=== PATIENT | female | born 1990 | race Caucasian/White ===

== ENCOUNTER 2021-07-22 10:56 | Outpatient (REF) | payer OTHER, SELFPAY ==
--- NOTE | ~2021-07-22 | XR_ITS ---
EXAMINATION: LEFT ANKLE AND LEFT FOOT X-RAY CLINICAL INFORMATION: Sprain COMPARISON: None TECHNIQUE: 3 views of the left ankle and 3 views of the left foot FINDINGS: Left foot: Bone alignment is normal. No fracture or dislocation is seen. The joint spaces are normal. Soft tissues are normal. Left ankle: Bone alignment is normal. No fracture or dislocation is seen. The ankle mortise is normal. Soft tissues are normal. XR/XR ankle LT min 3V IMPRESSION: Unremarkable exam.
--- NOTE | ~2021-07-22 | XR_ITS ---
EXAMINATION: LEFT ANKLE AND LEFT FOOT X-RAY CLINICAL INFORMATION: Sprain COMPARISON: None TECHNIQUE: 3 views of the left ankle and 3 views of the left foot FINDINGS: Left foot: Bone alignment is normal. No fracture or dislocation is seen. The joint spaces are normal. Soft tissues are normal. Left ankle: Bone alignment is normal. No fracture or dislocation is seen. The ankle mortise is normal. Soft tissues are normal. XR/XR foot LT min 3V IMPRESSION: Unremarkable exam.
== END 2021-07-22 10:57 | disposition home or self-care (01) ==
LOC: HO.HMGCX 10:56
PROVIDERS: PCP Internal Medicine; Visit Provider Physician Assistant Medical
DX: Z13.89 Encounter for screening for other disorder (principal)
CPT/HCPCS: 73610; 73630

== ENCOUNTER 2022-01-26 06:00 | Day surgery (SDC) | payer OTHER, SELFPAY ==
--- NOTE | 2022-01-25 14:09 | P.CONAN_ITS ---
Documented by User: Flor Owusu NP 01/25/22 14:09 HPI - Anesthesia Eval Consult details Narrative: 31yo F for Endoscopic Bronchial Ultrasound,with poss CME COUNTS INCLUDE 234 BEDS AT THE [facility] Past Medical History Medical History Asthma GERD (gastroesophageal reflux disease) Hiatal hernia Mediastinal mass Obesity Psoriasis Surgical History Surgical History (Updated 01/26/22 @ 06:11 by Katie Soto, RN) H/O wisdom tooth extraction History of esophagogastroduodenoscopy (EGD) Previous section Social History Social History Patient Tobacco Use Status: Never used Tobacco Use of substances other than those prescribed or required for medical reasons: No Are you DNR?: No Advance Directives: No Advance Directives Information Provided: Yes Meds Allergies Allergy/AdvReac Type Severity Reaction Status Date / Time No Known Allergies Allergy Verified 07/22/21 10:32 [No Known Allergies*] Home Medications Medication Instructions Recorded Confirmed Last Taken Type etonogestrel 68 mg subdermal SUBDERMAL 07/22/21 Unknown History implant (Nexplanon) albuterol sulfate 90 mcg/actuation INHALATION 01/25/22 Unknown History aerosol inhaler (ProAir HFA) famotidine 10 mg tablet (Heartburn tab PO 01/25/22 01/25/22 Unknown History Relief (famotidine)) omeprazole 20 mg capsule,delayed 1 cap PO DAILY 01/25/22 01/25/22 Unknown History release Exam Exam Date and Time: January 25, 2022 1409 Assessment and Plan Assessment Anesthesia Assessment: Chart Reviewed Documented by User: Sherrill Pinzon MD 01/26/22 07:04 COUNTS INCLUDE 234 BEDS AT THE [facility] Past Medical History Medical History Asthma GERD (gastroesophageal reflux disease) Hiatal hernia Mediastinal mass Obesity Psoriasis Family History Family history of problems with anesthesia: No Surgical History Surgical History (Updated 01/26/22 @ 06:11 by Katie Soto, RN) H/O wisdom tooth extraction History of esophagogastroduodenoscopy (EGD) Previous section History of Problems with Anesthesia: No Social History Social History Patient Tobacco Use Status: Never used Tobacco Use of substances other than those prescribed or required for medical reasons: No Are you DNR?: No Advance Directives: No Advance Directives Information Provided: Yes Meds Allergies Allergy/AdvReac Type Severity Reaction Status Date / Time No Known Allergies Allergy Verified 07/22/21 10:32 [No Known Allergies*] Home Medications Medication Instructions Recorded Confirmed Last Taken Type etonogestrel 68 mg subdermal SUBDERMAL 07/22/21 Unknown History implant (Nexplanon) albuterol sulfate 90 mcg/actuation INHALATION 01/25/22 Unknown History aerosol inhaler (ProAir HFA) famotidine 10 mg tablet (Heartburn tab PO 01/25/22 01/25/22 Unknown History Relief (famotidine)) omeprazole 20 mg capsule,delayed 1 cap PO DAILY 01/25/22 01/25/22 Unknown History release Exam Airway Mallampati Class: II TM Dist: >3cm Neck ROM: Full Heart: rrr Lungs: cta Assessment and Plan Assessment Anesthesia Assessment: Anesthesia Plan Discussed and Chart Reviewed Final Anesthetic Review Family History of Problems with Anesthesia: No History of Problems with Anesthesia: No NPO: Yes ASA Class: III Final Preanesthetic Review: No Changes in Pt Med Stat, Meds/Allgs Chart Reviewed and Consent Obtained/Reviewed Patient Risk: Intermediate Procedure Risk: Intermediate Anesthetic Plan Anesthetic Plan: MAC: Disposition: Standard PACU
[2022-01-26 06:12] VITALS: BMI 52.8
[2022-01-26 06:14] VITALS: BP 136/86; PULSE 88; RESP 16; TEMP 37.1; O2SAT 97
[2022-01-26 06:24] LABS: UPreg QC Valid YES; Urine Pregnancy NEGATIVE (NEGATIVE)
[2022-01-26] MEDS: Lactated Ringers 1,000 ML 100 ML IVCONT (06:31)
--- NOTE | 2022-01-26 07:20 | MHC.SHP ---
Pre-Procedural Eval Section A Date of Service: 01/26/22 The patient is an INPATIENT: No The History & Physical has been completed within 30 days and I have reviewed it.: Yes Section B Chief Complaint: Localized enlarged lymph nodes Allergies: Allergies Allergy/AdvReac Type Severity Reaction Status Date / Time No Known Allergies Allergy Verified 07/22/21 10:32 [No Known Allergies*] Plan I have reviewed the history and physical and performed a pertinent physical examination on my patient. No changes have occurred unless specified.
[2022-01-26 08:34] VITALS: BP 128/80; PULSE 105; RESP 20; TEMP 36.8; O2SAT 95
[2022-01-26 08:39] VITALS: BP 128/75; PULSE 93; RESP 20; O2SAT 94
[2022-01-26 08:44] VITALS: BP 126/73; PULSE 98; RESP 20; O2SAT 94
[2022-01-26] MEDS: Throat Lozenge, Medicated LOZENGE 1 LOZENGE MUCOUS MEM (08:48)
[2022-01-26 08:49] VITALS: BP 116/69; PULSE 85; RESP 20; O2SAT 94
--- NOTE | 2022-01-26 08:51 | W.PM.OPN ---
Operative Note Operative Note Date of Service: 01/26/22 Narrative: Preoperative diagnosis: Mediastinal lymphadenopathy Postoperative diagnosis: Same Operation: Endobronchial ultrasound with biopsy of multiple lymph node stations Surgeon: Karoline Simmons MD Anesthesia: General Specimens: Mediastinal lymph nodes EBL: Operation in detail: The patient was brought to the operating room, placed supine on the operative table, anesthesia monitor devices were placed, and the patient was intubated with an 8 and half endotracheal tube. A time-out was performed confirming the correct patient, site, and procedure. The Olympus endobronchial ultrasound scope was then inserted through the endotracheal tube and the airways were visualized down to the subsegmental level bilaterally. Findings are no endobronchial lesions and no secretions The ultrasound was then applied to all 3 stations visualizing the lymph nodes with the findings bulky lymphadenopathy in the right paratracheal, left paratracheal, and subcarinal space mediastinal spaces. This correlates with her CT imaging from [facility]. First, we visualized with ultrasound the subcarinal lymph nodes in using a 19 gauge Olympus biopsy needle 3 passes were taking and sent for on-site evaluation. This process was then repeated with right paratracheal and left paratracheal lymph nodes. Findings are at least 1 good sample no carcinoma identified. The remaining passes were placed in a combination of cyto light and are RPMI for flow. Hemostasis was then assured in the bronchoscope was removed. The patient tolerated the procedure well, was extubated in the operating room, and brought to the PACU in stable condition.
[2022-01-26 09:05] VITALS: BP 130/80; PULSE 84; RESP 20; TEMP 36.9; O2SAT 96
== END 2022-01-26 09:30 | disposition home or self-care (01) ==
PROVIDERS: Nurse Practitioner; PCP Internal Medicine; Visit Provider Surgery
PROC: (CPT 31653; principal; 2022-01-26 07:30)
DX: R59.0 Localized enlarged lymph nodes (principal); R07.9 Chest pain, unspecified; R06.02 Shortness of breath; K44.9 Diaphragmatic hernia without obstruction or gangrene; K21.9 Gastro-esophageal reflux disease without esophagitis; J45.909 Unspecified asthma, uncomplicated; L40.9 Psoriasis, unspecified; E66.01 Morbid (severe) obesity due to excess calories; Z68.43 Body mass index [BMI] 50.0-59.9, adult; Z79.899 Other long term (current) drug therapy; Z86.16 Personal history of COVID-19
CPT/HCPCS: 31653; 36415; 81025; 88172; 88173; 88177; 88184; 88185; 88305; 88312; J0171; J0690; J1100; J2250; J2405; J3010

== ENCOUNTER 2025-05-10 08:17 | Outpatient (AMB) | payer OTHER, SELFPAY ==
--- OUTSIDE RECORDS SUMMARY | 2025-05-10 08:22 | XMS_ITS | Data Portability ---
Author Organization [facility], [address] Address [address] [place] [address] Care Team Providers Care Forming Fixer Name Role Phone [facility] Prim [place] Care Provider Assessment No assessment recorded. Plan of Treatment Reminders Order Date Submit Date Provider Last Modified By Organization Details Last Modified Time Details Appointments None recorded. Lab rapid SARS CoV 2 Ag, QL IA, respiratory specimen 2022 023 [email or web address] 5 [address] [address], [address] [place], [address], 3 16:26:54 rapid flu (A+B) 2022 023 [email or web address] 5 [address] [address], [address] [place], [address], 3 16:26:54 rapid strep group A, throat 2022 023 [email or web address] 5 [id number] [address] [place], [address], 3 16:26:54 Referral None recorded. Procedures None recorded. Surgeries None recorded. Imaging None recorded. Medication Orders None recorded. Patient TargetsNo targets recorded. Patient Instructions Encounter Date Encounter Id Patient Instructions Last Modified By Organization Details Last Modified Time 11/05/2022 [id number] coronavirus (covid-19): care instructions [email or web address] Not available 11/05/2022 16:26:54 Fever: Care Instructions [email or web address] Not available 11/05/2022 16:26:54 cough: care instructions [email or web address] Not available 11/05/2022 16:26:54 Rest. Drink plenty of fluids. Tylenol may be taken per package instructions for pain and fever. Nutritional supplements that may benefit you include: Vitamin D3 5,000 IU daily Vitamin C 1,000mg 3 times daily Zinc 50mg daily Quercetin 500mg 2 times daily Cucurmin Melatonin Elderberry Gargling with Listerine and using a saline nasal spray several times daily can decrease viral replication in your nose and mouth. See printed instructions. Seek Emergency Medical evaluation for any worsening symptoms. Follow-up with your doctor this week. Quarantine at home for 5 days from onset of symptoms. If you feel well on day 6 you may leave your home but wear a mask for the next 5 days. If you are still sick on day 6 stay home for a few more days. [email or web address] Not available 11/05/2022 16:26:48 Reason for Referral None Reported. Results Created Date Observation Date Name Description Value Unit Range Abnormal Flag Note LastModifiedBy Organization Detail LastModifiedTime 11/05/1911/05/2022 rapid flu (A+B) Unknown Analyte Normal = Negati ve Not Available [address] [place], [address], 11/05/2022 15:38:29 11/05/19 23 11/05/2022 rapid flu (A+B) Unknown Analyte negati ve Not Available [address] [place], [address], 11/05/2022 15:38:29 11/05/19 23 11/05/2022 rapid flu (A+B) Unknown Analyte Normal = Negati ve Not Available [address] [place], [address], 11/05/2022 15:38:29 11/05/19 23 11/05/2022 rapid flu (A+B) Unknown Analyte negati ve Not Available [address] [place], [address], 11/05/2022 15:38:29 11/05/19 23 11/05/2022 rapid strep group A, throa t Unknown Analyte Normal = Negati ve Not Available [address] [place], [address], 11/05/2022 15:38:35 11/05/19 23 11/05/2022 rapid strep group A, throa t Unknown Analyte negati ve Not Available [address] [place], [address], 11/05/2022 15:38:35 11/05/19 23 11/05/2022 rapid SARS CoV 2 Ag, QL IA, respi rator y speci men Unknown Analyte Normal =Negat fermin Not Available [address] [place], [address], 11/05/2022 15:37:55 11/05/1911/05/2022 rapid SARS CoV 2 Ag, QL IA, respi rator y speci men Unknown Analyte positi ve Not Available [address] [place], [address], 11/05/2022 15:37:55 Result Notes None recorded. Problems Name Problem SNOMED Code Status Onset Date Resolution Date Notes Provider Name and Address Organization Details Recorded Time Asthma 904811600 Active 2022 MEL MACHJOSSY null, [place] - [facility] 3 15:40:52 Sarcoidos is 02047851 Active 2022 MELWILLIE TUCKER null, PA - [facility] 3 15:42:45 SARS-CoV- 2 Completed 201911/03/2020 dx second time in november 2021 MEL TUCKER null, PA - [facility] 3 15:43:30 Problem Notes None recorded. Medical Equipment None Reported. Allergies No known drug allergies Medications Name Sig Start Date Stop Date Status Note LastModified by Organization Details LastModified Time omeprazole 20 mg capsule,del ayed release TAKE ONE CAPSULE BY MOUTH ONCE DAILY 30 MINUTES BEFORE FIRST MEAL 11/05 completed Not Available Not Available Not Available diclofenac sodium 75 mg tablet,ko yed release TAKE ONE TABLET BY MOUTH TWICE A DAY 11/05 completed Not Available Not Available Not Available amoxicillin 875 mg-potassiu m clavulanate 125 mg tablet TAKE ONE TABLET BY MOUTH TWICE A DAY FOR 7 DAYS 11/05 completed Not Available Not Available Not Available Heartburn Relief (famotidine ) 10 mg tablet TAKE ONE TABLET BY MOUTH TWICE A DAY 11/05 completed Not Available Not Available Not Available nitrofurant oin monohydrate /macrocryst als 100 mg capsule TAKE ONE CAPSULE BY MOUTH TWICE A DAY FOR 7 DAYS 11/05 completed Not Available Not Available Not Available albuterol sulfate active Not Available Not Available Not Available ProAir HFA 90 mcg/actuati on aerosol inhaler INHALE TWO PUFFS BY MOUTH EVERY 4 HOURS NEEDED FOR SHORTNESS OF BREATH , COUGH , OR WHEEZING 11/05 completed Not Available Not Available Not Available Vitals Date Recorded Body height Body mass index (BMI) Body weight Oxygen saturation Oxygen saturation in Arterial blood by Pulse oximetry Heart rate Respiratory rate Body temperature Systolic And Diastolic Provider Name and Address Organization Details Last Updated DateTime 3 157.48 cm 51.9 kg/m2 036129. 23 g 98 % 98 % 93 /min 18 /min 99.3 [degF] 132/80 mm[Hg] MEL TUCKER [facility] 3 15:39:25 Social History Question Answer Notes LastModified by [employer] Details LastModified Time Tobacco Smoking Status Never Smoker [facility] 11/05/2022 15:42:15 Have You Recently Traveled Abroad? No Information not available 11/05/2022 Sex: Unknown Functional Status Question Answer Note LastModified by [employer] Details LastModified Time Do you use any illicit or recreational drugs? No Information not available 11/05/2022 Do you or have you ever used any other forms of tobacco or nicotine? No Information not available 11/05/2022 What is your level of alcohol consumption? None Information not available 11/05/2022 Mental Status None recorded. Family History Relationship Description Onset Age of this Age Resolved Age Notes LastModified by Organization Details LastModified Time Unspecified Relation Heart disease [email or web address] Not available 2022 15:41:46 Unspecified Relation Atrial fibrillation [email or web address] Not available 12/2022 15:41:51 Unspecified Relation Malignant tumor of breast [email or web address] Not available 2022 15:42:03 Unspecified Relation Malignant neoplasm of vertebral column region [email or web address] Not available 2022 15:42:10 Medical History No medical history recorded. Gynecological HistoryNo gynecological history recorded. Obstetrics History GPAL:G 0 P 0 0 0 0 Immunizations Vaccine Type Date Status Note Provider Nam e and Address Organization Details Recorded Time Influenza, split virus, trivalent, preservative 2 completed MEL MACHNACZ null, PA - [facility] 11/05/2022 15:39:56 OPV 0 completed MEL MACHNACZ null, PA - [facility] 11/05/2022 15:39:56 MMR 9 completed MEL MACHNACZ null, PA - [facility] 11/05/2022 15:39:56 HPV, quadrivalent 8 completed MEL MACHNACZ null, PA - [facility] 11/05/2022 15:39:56 Hep B, adolescent or pediatric 9 completed MEL MACHNACZ null, PA - [facility] 11/05/2022 15:39:56 MMR 0 completed MEL MACHNACZ null, PA - [facility] 11/05/2022 15:39:56 DTaP-Hib 0 completed MEL MACHNACZ null, PA - [facility] 11/05/2022 15:39:56 OPV 8 completed MEL MACHNACZ null, PA - [facility] 11/05/2022 15:39:56 OPV 3 completed MEL MACHNACZ null, PA - [facility] 11/05/2022 15:39:56 DTaP-Hib 3 completed MEL MACHNACZ null, PA - [facility] 11/05/2022 15:39:56 Hep B, adolescent or pediatric 0 completed MEL MACHNACZ null, PA - [facility] 11/05/2022 15:39:56 DTP 9 completed MEL MACHNACZ null, PA - [facility] 11/05/2022 15:39:56 Influenza, split virus, trivalent, PF 3 completed MEL MACHNACZ null, PA - [facility] 11/05/2022 15:39:56 Hep B, adult 0 completed MEL MACHNACZ null, PA - [facility] 11/05/2022 15:39:56 OPV 9 completed MEL MACHNACZ null, PA - [facility] 11/05/2022 15:39:56 COVID-19, mRNA, LNP-S, PF, 30 mcg/0.3 mL dose 1 completed MEL MACHNACZ null, PA - [facility] 11/05/2022 15:39:56 varicella 9 completed MEL MACHNACZ null, PA - [facility] 11/05/2022 15:39:56 varicella 9 completed MEL MACHNACZ null, PA - [facility] 11/05/2022 15:39:56 Hep B, adult 1 completed MEL MACHNACZ null, PA - [facility] 11/05/2022 15:39:56 Hep B, adolescent or pediatric 9 completed MEL MACHNACZ null, PA - [facility] 11/05/2022 15:39:56 Influenza, split virus, quadrivalent, PF 0 completed MEL MACHNACZ null, PA - [facility] 11/05/2022 15:39:56 MMR 9 completed MEL MACHNACZ null, PA - [facility] 11/05/2022 15:39:56 Hib (HbOC) 0 completed MEL MACHNACZ null, PA - [facility] 11/05/2022 15:39:56 Tdap 4 completed MEL MACHNACZ null, PA - [facility] 11/05/2022 15:39:56 Tdap 4 completed MEL MACHNACZ null, PA - [facility] 11/05/2022 15:39:56 HPV, quadrivalent 7 completed MEL MACHNACZ null, PA - [facility] 11/05/2022 15:39:56 pneumococcal polysaccharide PPV23 6 completed MEL MACHNACZ null, PA - [facility] 11/05/2022 15:39:56 DTP 8 completed MEL MACHNACZ null, PA - [facility] 11/05/2022 15:39:56 DTP 9 completed MEL MACHNACZ null, PA - [facility] 11/05/2022 15:39:56 COVID-19, mRNA, LNP-S, PF, 30 mcg/0.3 mL dose 1 completed MEL MACHNACZ null, PA - [facility] 11/05/2022 15:39:56 Influenza, MDCK, quadrivalent, PF 9 completed MEL MACHNACZ null, PA - [facility] 11/05/2022 15:39:56 varicella 1 completed MEL MACHNACZ null, PA - [facility] 11/05/2022 15:39:56 HPV, quadrivalent 7 completed MEL MACHNACZ null, PA - [facility] 11/05/2022 15:39:56 meningococcal MCV4P 9 completed MEL MACHNACZ null, PA - [facility] 11/05/2022 15:39:56 Tdap 6 completed MEL MACHNACZ null, PA - [facility] 11/05/2022 15:39:56 Td (adult), 2 Lf tetanus toxoid, preservative free, adsorbed 0 completed MEL MACHNACZ null, PA - [facility] 11/05/2022 15:39:56 OPV 9 completed MEL MACHNACZ null, PA - [facility] 11/05/2022 15:39:56 Past Encounters Encounter ID Performer Location Encounter Start Date Encounter Closed Date Diagnosis/Indication Diagnosis SNOMED-CT Code Diagnosis ICD10 Code Diagnosis Note [id number] [address] [place] [address] 07/31/2016 17:38:28 07/31/2016 18:55:18 [id number] [address] [place] [address] 02/26/2021 16:14:13 02/26/2021 17:54:08 [id number] Kae Luong MD [address] [place] [address] 11/05/2022 09:44:54 11/05/2022 16:28:26 Acute COVID-19 0137830425 U07.1 Health Concerns Section Related Observation LastModified by Organization Detai ls LastModified Time None Recorded Concern Status LastModified by Organization Details LastModified Time None Recorded Advance Directives Directive None Recorded Payers Insurance Date Sequence Insurance Name Policy Number Policy Becerra Covered Member ID Becerra Member ID Guarantor Name 11/05/2022 1 [facility] - [facility] (MEDICAID REPLACEMENT - HMO) RJ Alexandre [id number] Clotilde Alexandre Notes Date Note Type Note Provider Name and Address Organization Details Recorded Time 3 text/html CoughReported bypatient.source of patient informationInformation obtained from patient; Patient arrived at Urgent Care ambulatory Quality:harsh;productive cough Severity:moderate Duration:constant Context:non-smoker;history of asthma Associated Symptoms:no fever; no chest pain; no heartburn; no vomiting; no edema; no agitation;chills;nausea;whe ezing;post nasal dripNotes:32 year old female with hx of mild asthma presenting for evaluation of chills, nasal congestion, runny nose, sore throat, productive cough, nausea, headache and body aches since yesterday. She was exposed to someone with covid 19. She had some wheezing with shortness of breath this morning which resolved with use of her albuterol inhaler. No rash, stiff neck, ear pain, vomiting, diarrhea, abdominal pain. She has some anterior chest pain with cough only. Kae Luong MD [address] [facility] [place], [address], [place] - [facility] 11/05/2022 16:34:50 OBGyn Episode No OBEpisode recorded.
--- OUTSIDE RECORDS SUMMARY | 2025-05-10 08:22 | XMS_ITS | Clinical Summary ---
Author Organization [address] Address [address] [place] [phone] Phone Care Team Providers Care Surveillance Systems Engineer Name Role Phone Bandar Tovar MD Primary Care Provider Allergies Active Allergy Reactions Criticality Noted Date Comments Cat Dander 01/29/2025 Nitrofurantoin Hives 01/29/2025 Medications albuterol HFA (PROAIR HFA ; PROVENTIL HFA ; VENTOLIN HFA) 90 mcg/actuation inhaler Inhale 2 Puffs into the lungs every 4 hours as needed for Cough, Wheezing or Shortness of Breath. 2 Active multivitamin tablet Take 1 tablet by mouth 1 (one) time each day. Active tirzepatide, weight loss, (Zepbound) 2.5 mg/0.5 mL solution Inject 2.5 mg under the skin every 7 (seven) days. 2 mL 1 5 Active labetaloL (NORMODYNE) 200 mg tablet Take 1 tablet (200 mg total) by mouth 2 (two) times a day. 180 tablet 5 Active Active Problems Problem Noted Date Diagnosed Date Mixed hyperlipidemia 02/24/2025 Atypical chest pain 01/29/2025 Assessment & Plan (01/29/2025 4:38 PM EDT): I agree with the patient that this sounds very much musculoskeletal. No further cardiac workup. Recommended she try doing some stretching exercises for her chest and try to carry the baby with her right arm. Could also alternate icing and heating the left upper chest and arm. Primary hypertension 08/28/2023 Overview (10/16/2024): Last Assessment & Plan: Today blood pressure is elevated. She states that when recently when she saw her counter checker blood pressure was 118/74. I think they could be due to the fact that she is either rushing her nurse by telemetry we need to keep an eye on this. I did discuss her diet with her. I explained to her should try to cut down on salt prostrated get the weight down. I did tell her though if she ever had any discomfort in her chest that lasted over 10 to 15 minutes to call 911. Assessment & Plan (01/29/2025 4:38 PM EDT): Per [employer]ES [employer]IV[employer] MANAGER notes and [facility] from November 2024, it does not appear as though they are concerned about preeclampsia this far out from . They recommended further treatment of chronic hypertension by her PCP. Her blood pressure is elevated today both on initial check and on my recheck. That said, she reports better control at home and admits to sodium indiscretion. I recommended rechecking blood pressure at home regularly in a resting state but no more than 2-3 times a week. Ideally I would check different times of day. I demonstrated proper technique and the patient already knew this. For now, I am continuing her on her current labetalol dose at 200 twice daily. She has an upcoming visit with her PCP. If necessary, would recommend adding a calcium channel nneka as needed for additional blood pressure control-either nifedipine or amlodipine. However, I completely agree with the patient that low-sodium diet, regular aerobic exercise, and weight loss will likely get her to goal. To that end, she asked about GLP-1 agonists. There are no cardiovascular contraindications to use of these agents. In fact, they have favorable cardiovascular risk profiles. Mild intermittent asthma without complication Sarcoidosis 12/10/2022 Overview (10/16/2024): Last Assessment & Plan: As I noted she was diagnosed with sarcoidosis in the past although recent imaging demonstrated no evidence for sarcoidosis. Did have an EKG in February and that time her ECG appear to be unremarkable. She did have an echocardiogram back in 2021. That time the left ventricle and right ventricle are normal. The left ventricular systolic function was normal. There is no hemodynamic valvular disease. We will have the patient come back in a year at which point think she will need a repeat ECG. Did tell if she started having any exertional symptoms, that I described to her to call. Assessment & Plan (01/29/2025 4:38 PM EDT): She has had no evidence of cardiac sarcoid either on ECG or by symptoms of heart failure, arrhythmias. There is no absolute that she should develop cardiac sarcoid and we typically do not continually screen for this even when someone has pulmonary sarcoid unless they have symptoms which are consistent with this. Furthermore, she had an echocardiogram in 2021 that showed normal biventricular function. No further workup needs to be done for this unless symptoms arise. Orders: ECG 12 lead CRESENCIO (obstructive sleep apnea) 12/10/2022 Yeast infection 12/04/2022 Overview (10/16/2024): Last Assessment & Plan: Rx Diflucan daily x5d provided for significant vulvovaginal yeast infection, particularly given that I plan to treat the patient with another course of antibiotics for suspected UTI. Continue with lotrimin cream as this does seem to help. Patient to return if symptoms do not improve following treatment. Hematuria 12/04/2022 Overview (10/16/2024): Last Assessment & Plan: If urine culture negative, will need to repeat UA in 2-3 months. Acute cystitis with hematuria 12/04/2022 Overview (10/16/2024): Last Assessment & Plan: UA positive for large blood and exam consistent with UTI. Rx keflex x3d provided. Urine culture sent to confirm. Palpitation 07/25/2022 Overview (10/16/2024): Last Assessment & Plan: As I noted the patient has had a prior history of palpitations but this time she had no recurrence. 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 She did have a lung biopsy done. Today the patient is ECG is normal. She did have an echocardiogram in April and at that time the wall thickness was normal. The left ventricular chamber size and function were normal. There is no valvular heart disease. This time we do not have any evidence that she does have sarcoidosis of her heart. I like to see her back in a year. Repeat EKG at that time. I did tell though she started having any shortness of breath I would want her to let me know. Mediastinal lymphadenopathy 01/11/2022 Overview (10/16/2024): Last Assessment & Plan: 31-year-old woman who presented initially with chest pain, shortness of breath, and heartburn as part of her work-up had a CAT scan showing bilateral hilar and mediastinal lymphadenopathy of unclear etiology. I had a long discussion with her about the findings on her CAT scan which she seemed understand and the differential being most likely lymphoma versus sarcoidosis and less likely malignancy of some other kind. All of this of course is also possibly reactive in nature. I did discuss options of continued observation with the repeat CT scan in 3 months to see if this improves versus endobronchial ultrasound possible mediastinoscopy now for diagnostic purposes. She seemed understand all this and wants to proceed with endobronchial ultrasound possible mediastinoscopy which will be arranged in the coming weeks. Hiatal hernia with gastroesophageal reflux 01/11 Overview (10/16/2024): Last Assessment & Plan: I did discuss with her that she also has a hiatal hernia which she knew about. This does seem relatively asymptomatic except for the reflux which is well controlled by omeprazole at this point in time. We discussed some dietary changes and things she can do to minimize this effect. We also discussed weight loss as a means of improving her reflux symptoms and decreasing the likelihood that the hernia worsens over time. Morbid obesity ([facility] V24, [facility] V28) 2017 Overview (10/16/2024): Last Assessment & Plan: Encouraged Ale to work on diet and exercise and see Weight Management clinic to discuss options, particularly surgical options for weight loss. I strongly encouraged her to lose weight before deciding to conceive given increased risk of GDM, GHTN, , VTE, undiagnosed anomaly. She will plan to use condoms. Gastroesophageal reflux disease without esophagi tis 12/30/2015 Encounters Date Type Department Care Team Description 02/25/2025 Telephone Adult Medicine [facility] [address] [place] [id number] Bandar Tovar MD prior auth for medication 02/24/2025 4:00 PM EDT Office Visit Adult [facility] [address] [place] [phone] Bandar Tovar MD Physical exam (Primary Dx); Sarcoidosis of lung with sarcoidosis of lymph nodes (CMS/HCC V24); CRESENCIO (obstructive sleep apnea); Morbid obesity (CMS/HCC V24, CMS/HCC V28); Primary hypertension; Mixed hyperlipidemia; Vitamin D deficiency disease; Screening for deficiency anemia; Screening for diabetes mellitus (DM); Screening for hyperlipidemia; Screening for thyroid disorder from Last 3 Months Immunizations Name Administration Dates Next Due DTP 03/25/1989,02/01/1989,1988 DTaP / Hib 06/13/1993,07/30/1990 [id number] (Pentacel) 2mo to less than 5yo 04/07/1990 HPV, Quadrivalent 02/13/2008,10/03/2007,07/11/20 07 Hepatitis B Pediatric (Enger ix B; Recombivax HB) to less than 20 yo 03/28/2000,10/13/1999,09/08/1999 Influenza trivalent, 0.5mL, preservative free (Fluarix; FluLaval; Fluzone) ages 6mo and older (Afluria) 3 years and older 08/11/2013,07/22/2012 Influenza, Unspecified 10/14/2019 MMR, measles mumps and rubel la Live (Priorix; M-M-R II) 12mo and older 10/15/2024,10/13/1999,09/08/1999,01/02 Meningococcal MCV4P 02/02/2009 Pneumococcal polysaccharide 23 valent (Pneumovax 23) 2yo and older 12/30/2015 Polio, Unspecified 06/13/1993, 0,03/25/1989,02/01,1988 Td Tetanus diptheria (Tdvax) 7yo and older 03/28/2000 Tdap Tetanus diptheria acell ular pertussis (Boostrix; Adacel) 7yo and older 08/07/2024,12/15/2013,01/31/2006,03/28 Varicella live (Varivax) 12m o and older 01/19/2021,10/13/1999 Surgical History Surgery Date Site/Laterality Comments SECTION PROCEDURE: HISTORICAL ; COMMENT: x2 WISDOM TOOTH EXTRACTION 2005 PROCEDURE: HISTORICAL WISDOM TEETH EXTRACTION Medical History Medical History Date Comments Asthma DX:Asthma Chlamydial infection 11/04/2005 DX:Chlamydi al infection; COMMENT: treated Obesity DX:Obesity GERD (gastroesophageal reflux disease) DX:GERD (gastroesophageal reflux disease) Sarcoidosis DX:Sarcoidosis Hypertension Family History Medical History Relation Name Comments Neurofibromatosis Brother 1 Other: brain tumor Brother 2 seizures Atrial fibrillation Father Lung cancer Father Other: churg-strauf syndrome Father aortic valve replacement Father pacemaker Father Neurofibromatosis Maternal Grandfather Diabetes Maternal Grandmother Heart attack Maternal Grandmother x6 Hypertension Maternal Grandmother Lung cancer Maternal Grandmother smoker Other: hyperlipidemia Maternal Grandmother Neurofibromatosis Mother cancer Other: tachycardia Sister 1 Natalia s/p ablat ion Other: damon-parkinson white Sister 2 Kae heart murmur Heart murmur Sister 3 Kinsey Other: heart Uncle Breast cancer Neg Hx Cancer of Small Bowel Neg Hx Colon cancer Neg Hx Kidney cancer Neg Hx Ovarian cancer Neg Hx Pancreatic cancer Neg Hx Prostate cancer Neg Hx Uterine cancer Neg Hx Relation Name Status Comments Brother 1 Brother 2 Father Maternal Grandfather Maternal Grandmother Mother Sister 1 Natalia Sister 2 Kae Sister 3 Kinsey Alive Uncle Social History Tobacco Use Types Packs/Day Years Used Date Smoking Tobacco: Never Smokeless Tobacco: Never Alcohol Use Standard Drinks/Week Comments Not Currently 0 (1 standard drink = 0.6 oz pur e alcohol) Housing Instability Answer Date Recorde d Are you worried that in the next 2 months you may not have stable housing? No 02/23/2025 Food Access & Nutrition Answer Date Rec orded Do you have access to a vari ety of food including fruits and vegetables? Yes 02/23/2025 Access to Healthcare Answer Date Record ed Within the last 3 months, ho w many times did you visit the emergency department for your medical care? 0 02/23/2025 Health Literacy Answer Date Recorded How often do you need to hav e someone help you when you read instructions, pamphlets, or other written material from your doctor or pharmacy? Never 02/23/2025 Caregiver: How often do you need to have someone help you when you read instructions, pamphlets, or other written material from your doctor or pharmacy? Not on file 02/23/2025 Financial Risk Answer Date Recorded How hard is it for you to pa y for the very basics like food, housing, medical care, and air conditioning / heating? Not very hard 02/23/2025 Transportation Answer Date Recorded Has the lack of transportati on kept you from meetings, work, or from getting things needed for daily living? No Has the lack of transportati on kept you from medical appointments or from getting medications? No 02/23/2025 Social Isolation Answer Date Recorded How often do you feel lonely or isolated from th ose around you? Never 02/23/2025 Food Risk Answer Date Recorded Within the past 12 months we worried whether our food would run out before we got money to buy more. Never true 02/23/2025 Within the past 12 months th e food we bought just didn't last and we didn't have money to get more. Never true 02/23/2025 Dependent Care Answer Date Recorded Do you need help finding or paying for care for your loved ones. For example, child care centre director or elderly care for an older adult? No 02/23/2025 Education Answer Date Recorded Do you think completing more education or training, like finishing a GED, going to college, or learning a trade, would be helpful for you? No 02/23/2025 Employment and Income Answer Date Recor ded During the last four weeks, have you been actively looking for work? No 02/23/2025 Living Situation Answer Date Recorded What is your living situation? 0 02/23/2025 Comments No Sex and Gender Information Value Date Recorded Sex Assigned at Not on file Legal Sex Female 3:39 AM EST Gender Identity Not on file Sexual Orientation Not on file Obstetrics History Last Filed Vital Signs Vital Sign Reading Time Taken Comments Blood Pressure 120/78 02/24/2025 4:05 PM EDT Pulse 70 02/24/2025 4:05 PM EDT Temperature 36.6 C (97.8 F) 02/24/2025 4:05 PM EDT Respiratory Rate 14 02/24/2025 4:05 PM EDT Oxygen Saturation 98% 02/24/2025 4:05 PM EDT Inhaled Oxygen Concentration - - Weight 139 kg (307 lb) 02/24/2025 4:05 PM EDT Height 157.5 cm (5' 2 ) 02/24/2025 4:05 PM EDT Body Mass Index 56.15 02/24/2025 4:05 PM EDT Plan of Treatment Upcoming Encounters Date Type Department Care Team (Late st Contact Info) Description 06/17/2025 8:30 AM EDT Office Visit Pulmon[place]gy - [place] [address] [phone] Terra Rosado MD [address] [address] 06/29/2025 3:45 PM EDT Office Visit Adult Medicine [address] [phone] Bandar Tovar MD [address] [place] [phone] Health Maintenance Due Date Last Done Comments Pneumococcal Vaccine: Pediatrics (0 to 5 Years) and At-Risk Patients (6 to 64 Years) (2 of 2 - PCV) 12/30/2016 12/30/2015 Cervical Cancer Screening: HPV 02/28/2024 02/27/2019 COVID-19 Vaccine ( season) 2024 01/02/2021, 12/12/2020 Influenza Vaccine (#1) 2025 , 10/14/2019, 08/11/2013, Additional history exists Depression Screening 02/23/2026 02/23/2025 Social Influencers of Health Screening 02/23/2026 02/23/2025 Hypertension/CHF/CAD Annual BMP Blood Test 04/21/2026 04/21/2025, 05/13/2023 Cholesterol Screening (Lipid Panel) 04/21/2030 04/21/2025, 05/13/2023 DTaP,Tdap,and Td Vaccines (11 - Td or Tdap) 08/07/2034 08/07/2024, 12/15/2013, 01/31/2006, Additional history exists HIB Vaccines Completed 06/13/1993, 07/06, 04/07/1990, Additional history exists IPV Vaccines Completed 06/13/1993, 07/06, 04/07/1990, Additional history exists HPV Vaccines Completed 02/13/2008, 09/06, 07/11/2007 Meningococcal ACWY Vaccine Aged Out 02/02/2009 N o longer eligible based on patient's age to complete this topic Hepatitis C Screening Completed 01/16/2016 HIV Screening Completed 06/26/2016 Hepatitis B Vaccines Completed 01/19/2021, 03/28/2000, 10/13/1999, Additional history exists Varicella Vaccines Aged Out 01/19/2021, 10/13/1999 No longer eligible based on patient's age to complete this topic MMR Vaccines Completed 10/15/2024, 10/04, 09/08/1999, Additional history exists Hepatitis A Vaccines Aged Out No long er eligible based on patient's age to complete this topic Meningococcal B Vaccine Aged Out No l onger eligible based on patient's age to complete this topic RSV Immunization Patients Under 20 months Aged Out No longer eligible based on patient's age to complete this topic Procedures Procedure Name Priority Date/Time Associated Diagnosis Comments CBC WITH AUTO DIFFERENTIAL Routine 04/21/2025 9:35 AM EDT Physical exam Sarcoidosis of lung with sarcoidosis of lymph nodes ([facility]/HCC V24) Primary hypertension Mixed hyperlipidemia Vitamin D deficiency disease Screening for deficiency anemia Screening for diabetes mellitus (DM) Screening for hyperlipidemia Screening for thyroid disorder HEMOGLOBIN A1C Routine 04/21/2025 9:35 AM EDT Physical exam Sarcoidosis of lung with sarcoidosis of lymph nodes (CMS/HCC V24) Primary hypertension Mixed hyperlipidemia Vitamin D deficiency disease Screening for deficiency anemia Screening for diabetes mellitus (DM) Screening for hyperlipidemia Screening for thyroid disorder CBC AND DIFFERENTIAL Routine 04/21/2025 9:35 AM EDT Physical exam Sarcoidosis of lung with sarcoidosis of lymph nodes (CMS/HCC V24) Primary hypertension Mixed hyperlipidemia Vitamin D deficiency disease Screening for deficiency anemia Screening for diabetes mellitus (DM) Screening for hyperlipidemia Screening for thyroid disorder COMPREHENSIVE METABOLIC PANEL Routine 04/21/2025 9:35 AM EDT Physical exam Sarcoidosis of lung with sarcoidosis of lymph nodes (CMS/HCC V24) Primary hypertension Mixed hyperlipidemia Vitamin D deficiency disease Screening for deficiency anemia Screening for diabetes mellitus (DM) Screening for hyperlipidemia Screening for thyroid disorder LIPID PANEL WITH REFLEX TO DIRECT LDL Routine 04/21/2025 9:35 AM EDT Physical exam Sarcoidosis of lung with sarcoidosis of lymph nodes (CMS/HCC V24) Primary hypertension Mixed hyperlipidemia Vitamin D deficiency disease Screening for deficiency anemia Screening for diabetes mellitus (DM) Screening for hyperlipidemia Screening for thyroid disorder THYROID STIMULATING HORMONE WITH REFLEX TO FREE T4 AND FREE T3 Routine 04/21/2025 9:35 AM EDT Physical exam Sarcoidosis of lung with sarcoidosis of lymph nodes (CMS/HCC V24) Primary hypertension Mixed hyperlipidemia Vitamin D deficiency disease Screening for deficiency anemia Screening for diabetes mellitus (DM) Screening for hyperlipidemia Screening for thyroid disorder VITAMIN D 25 HYDROXY Routine 04/21/2025 9:35 AM EDT Physical exam Sarcoidosis of lung with sarcoidosis of lymph nodes (CMS/HCC V24) Primary hypertension Mixed hyperlipidemia Vitamin D deficiency disease Screening for deficiency anemia Screening for diabetes mellitus (DM) Screening for hyperlipidemia Screening for thyroid disorder HM HPV Routine 02/27/2019 HIV SCREENING Routine 06/26/2016 HEPATITIS C SCREENING Routine 01/16/2016 from Last 3 Months or Most Recently Relevant to Health Maintenance Results * Thyroid stimulating hormone with reflex to free t4 and free t3 (04/21/2025 9:35 AM EDT) TSH 2.77 0.40 - 4.00 mcIU/mL LAB CHEMISTRY METHOD 04/21/2025 2:53 PM EDT [facility] Blood Venous blood specimen / Unknown Venipuncture / Unknown 04/21/2025 9:35 AM EDT 04/21/2025 9:35 AM EDT us Bandar Tovar MD LAB BLOOD ORDERABLES Final Result [facility] [address] [place] [address], * (ABNORMAL) Lipid panel with reflex to direct LDL (04/21/2025 9:35 AM EDT) Cholesterol 200 0 - 200 mg/dL LAB CHEMISTRY METHOD 04/21/2025 1:53 PM EDT [facility] Triglycerides 123 0 - 150 mg/dL LAB CHEMISTRY METHOD 04/21/2025 1:53 PM EDT [facility] HDL 55 >=40 mg/dL LAB CHEMISTRY METHOD 04/21/2025 1:53 PM EDT [facility] LDL Calculated 120(H) 0 - 100 mg/dL LAB CHEMISTRY METHOD 04/21/2025 1:53 PM T [facility] VLDL Cholesterol Duke 24.6 mg/dL LAB CHEMISTRY METHOD 04/21/2025 1:53 PM EDT [facility] Non HDL Chol. (LDL+VLDL) 145(H) <145 mg/dL LAB CHEMISTRY METHOD 04/21/2025 1:53 PM EDT [facility] Chol/HDL Ratio 3.6 0.0 - 4.4 LAB CHEMISTRY METHOD 04/21/2025 1:53 PM T [facility] Blood Venous blood specimen / Unknown Venipuncture / Unknown 04/21/2025 9:35 AM EDT 04/21/2025 9:35 AM EDT us Bandar Tovar MD LAB BLOOD ORDERABLES Final Result [facility] [address] [place] [address], [place] [phone] * (ABNORMAL) CBC auto differential (04/21/2025 9:35 AM EDT) WBC 9.5 4.8 - 10.8 K/mcL LAB HEMETOLOGY METHOD 04/21/2025 12:35 PM EDT [facility] RBC 4.80 3.80 - 4.80 M/mcL LAB HEMETOLOGY METHOD 04/21/2025 12:35 PM EDT [facility] Hemoglobin 14.7 11.5 - 16.0 g/dL LAB HEMETOLOGY METHOD 04/21/2025 12:35 PM EDT [facility] Hematocrit 44.0 35.0 - 47.0 % LAB HEMETOLOGY METHOD 04/21/2025 12:35 PM EDT [facility] MCV 92.6 79.0 - 98.0 FL LAB HEMETOLOGY METHOD 04/21/2025 12:35 PM EDT [facility] MCH 30.9 27.0 - 32.0 pcg LAB HEMETOLOGY METHOD 04/21/2025 12:35 PM EDT [facility] MCHC 33.4 32.0 - 37.0 g/dL LAB HEMETOLOGY METHOD 04/21/2025 12:35 PM EDT [facility] RDW 11.8 11.0 - 15.0 % LAB HEMETOLOGY METHOD 04/21/2025 12:35 PM EDT [facility] Platelets 305 130 - 400 K/mcL LAB HEMETOLOGY METHOD 04/21/2025 12:35 PM EDT [facility] MPV 10.3 7.0 - 11.0 FL LAB HEMETOLOGY METHOD 04/21/2025 12:35 PM EDT [facility] NRBC 0.0 <1.0 % LAB HEMETOLOGY METHOD 04/21/2025 12:35 PM EDT [facility] NRBC Absolute 0.00 <0.10 K/mcL LAB HEMETOLOGY METHOD 04/21/2025 12:35 PM EDT [facility] Neutrophils Relative 64.8 % LAB HEMETOLOGY METHOD 04/21/2025 12:35 PM EDT [facility] Lymphocytes Relative 22.1 % LAB [facility]OLOG[facility] Monocytes Relative 8.8 % LAB HEMETOLOGY METHOD 04/21/2025 12:35 PM [facility] Eosinophils Relative 3.1 % LAB HEMETOLOGY METHOD 04/21/2025 12:35 PM EDT [facility] Basophils Relative 0.8 % LAB HEMETOLOGY METHOD 04/21/2025 12:35 PM [facility] Immature Granulocytes Relative 0.4 % LAB HEMETOLOGY METHOD 04/21/2025 12:35 PM [facility] Neutrophils Absolute 6.15 1.50 - 7.00 K/mcL LAB HEMETOLOGY METHOD 04/21/2025 12:35 PM EDT [facility] Lymphocytes Absolute 2.10 1.00 - 5.00 K/mcL LAB HEMETOLOGY METHOD 04/21/2025 12:35 PM EDT [facility] Monocytes Absolute 0.84 0.20 - 1.00 K/mcL LAB HEMETOLOGY METHOD [facility]/21[facility]25 [facility] Eosinophils Absolute 0.29 0.00 - 0.50 K/mcL LAB HEMETOLOGY METHOD 04/21/2025 12:35 PM EDT [facility] Basophils Absolute 0.08 0.00 - 0.20 K/mcL LAB HEMETOLOGY METHOD 04/21/2025 12:35 PM EDT [facility] Immature Granulocytes Absolute 0.04(H) 0.00 - 0.03 K/[facility] LAB HEMETOLOGY METHOD 04/21/2025 12:35 PM EDT [facility] Blood Venous blood specimen / Unknown Venipuncture / Unknown 04/21/2025 9:35 AM EDT 04/21/2025 9:35 AM EDT Bandar Tovar MD LAB BLOOD ORDERABLES Final Result Performing Organization Address [facility]/ZIP Co de Phone Number [facility] [address] [place] [address], [place] [phone] * Vitamin D 25 hydroxy (04/21/2025 9:35 AM EDT) Vit D, 25-Hydroxy 30.3 30.0 - 80.0 ng/mL LAB CHEMISTRY METHOD 04/21/2025 2:52 PM EDT [facility] Blood Venous blood specimen / Unknown Venipuncture / Unknown 04/21/2025 9:35 AM EDT 04/21/2025 9:35 AM EDT Bandar Tovar MD LAB BLOOD ORDERABLES Final Result [facility] [address] [place] [address], [place] [phone] * Hemoglobin A1c (04/21/2025 9:35 AM EDT) Hemoglobin A1C 5.3 <6.5 % LAB CHEMISTRY METHOD 04/21/2025 2:30 PM EDT [facility] Mean Bld Glu Estim. 105 mg/dL LAB CHEMISTRY METHOD 04/21/2025 2:30 PM EDT [facility] Blood Venous blood specimen / Unknown Venipuncture / Unknown 04/21/2025 9:35 AM EDT 04/21/2025 9:35 AM EDT Bnadar Tovar MD LAB BLOOD ORDERABLES Final Result [facility] [address] [place] [address], * Comprehensive metabolic panel (04/21/2025 9:35 AM EDT) Sodium 137 133 - 145 mmol/L LAB CHEMISTRY METHOD 04/21/2025 1:53 PM [facility] Potassium 4.2 3.5 - 5.5 mmol/L LAB CHEMISTRY METHOD 04/21/2025 1:53 PM [facility] Chloride 104 96 - 110 mmol/L LAB CHEMISTRY METHOD 04/21/2025 1:53 PM [facility] CO2 24 21 - 32 mmol/L LAB CHEMISTRY METHOD 04/21/2025 1:53 PM [facility] Anion Gap 9 3 - 11 LAB CHEMISTRY METHOD 04/21/2025 1:53 PM [facility] Glucose 76 70 - 100 mg/dL LAB CHEMISTRY METHOD 04/21/2025 1:53 PM [facility] BUN 13 5 - 25 mg/dL LAB CHEMISTRY METHOD 04/21/2025 1:53 PM [facility] Creatinine 0.67 0.50 - 1.10 mg/dL LAB CHEMISTRY METHOD 04/21/2025 1:53 PM [facility] eGFR 116 >=60 mL/min/1. 73m2 LAB CHEMISTRY METHOD 04/21/2025 1:53 PM [facility] Comment:Calculation based on the Chronic Kidney Disease Epidemiology Collaboration (CKD-EPI) equation refit without adjustment for race. BUN/Creatinine Ratio 19.4 LAB CHEMISTRY METHOD 04/21/2025 1:53 PM EDT [facility] Calcium 9.6 8.5 - 10.5 mg/dL LAB CHEMISTRY METHOD 04/21/2025 1:53 PM T [facility] AST (SGOT) 25 10 - 42 unit/L LAB CHEMISTRY METHOD 04/21/2025 1:53 PM T [facility] ALT (SGPT) 46 10 - 60 unit/L LAB CHEMISTRY METHOD 04/21/2025 1:53 PM [facility] Alkaline Phosphatase 74 42 - 121 unit/L LAB CHEMISTRY METHOD 04/21/2025 1:53 PM [facility] Total Protein 6.9 6.0 - 8.0 g/dL LAB CHEMISTRY METHOD 04/21/2025 1:53 PM [facility] Albumin 4.0 3.2 - 5.0 g/dL LAB CHEMISTRY METHOD 04/21/2025 1:53 PM [facility] Total Bilirubin 0.5 0.0 - 1.4 mg/dL LAB CHEMISTRY METHOD 04/21/2025 1:53 PM [facility] Blood Venous blood specimen / Unknown Venipuncture / Unknown 04/21/2025 9:35 AM EDT 04/21/2025 9:35 AM EDT Bandar Tovar MD LAB BLOOD ORDERABLES Final Result [facility] [address] [place] [address], * Cervical Cancer Screening: HPV (02/27/2019) Pathologist [facility] Cervical Cancer Screening: HPV negative, abstracted Alexander Valencia MD HEALTH MAINTENANCE Final Result * HIV Screening (06/26/2016) HIV Screening abstracted us Historical Provider HEALTH MAINTENANCE Final Result * Hepatitis C Screening (01/16/2016) Hepatitis C Screening abstracted us Historical Provider HEALTH MAINTENANCE Final Result from Last 3 Months or Most Recently Relevant to Health Maintenance Insurance [facility] [employer] 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
--- NOTE | 2025-05-10 12:44 | A.OFFVIS_ITS ---
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 BMI 56.9: Details: Start time: 12.30pm, End time: 1.10pm and 5pm to 5.10pm I spent 45 minutes speaking with the patient on the phone plus an additional 5 minutes reviewing and updating records for a total of 50 minutes HPI Comments Details: Previous weight loss efforts: WW, self diets and exercise Wakes up: 6am, Sleeps: 11pm Breakfast: 8am (fast food, bagel with fruits) Lunch: 1pm (chicken, rice, fruits) Dinner: 6pm-8pm (meat, vegetables, eats out a lot) Snacks: 10am (granola bar or muffin, or fruits), 4pm (as in am), 8-9pm (ice cream, cookies) Exercise: has home treadmill (no incline) Beverages: Coffee/tea: none, soda: regular coke (2 glasses/day), juice: Crystal light, ETOH: none PFSH Medical History (Updated 05/10/25 @ 12:47 by Jarett Rodríguez MD) DJD (degenerative joint disease) Morbid obesity Mediastinal mass Hiatal hernia Obesity Psoriasis GERD (gastroesophageal reflux disease) Asthma Surgical History (Updated 01/26/22 @ 08:21 by Clotilde Betancourt PA-C) History of wisdom tooth extraction History of section History of esophagogastroduodenoscopy (EGD) Family History (Updated 04/20/25 @ 08:39 by Harry Jeffries, CLAUDETTE) Mother No problems noted. Father Cancer Social History (Updated 04/20/25 @ 08:39 by Harry Jeffries, RN) Alcohol intake: never Patient Tobacco Use Status: Never used Tobacco Physical Exam Vital Signs: BMI result Body Mass Index 56.9 Telehealth Telehealth Telehealth Platform: Telephone Location of provider rendering services: practice address Location of patient: address on file Patient Identification confirmed using: Name, : Yes Telehealth method: voice only Patient verbally consented to treatment: Yes Patient verbally consented to billing insurance company: Yes Patient informed of any privacy concerns related to visit: Yes Minutes spent on Phone/Video with Pt.: 60 Assessment & Plan Assessment & Plan (1) Morbid obesity: Code(s): E66.01 - Morbid (severe) obesity due to excess calories Category: Medical Plan: 1. Nutritional counseling. Start with one premade [facility] protein [facility] shake (8oz of PREMIER shake, NOT the whole bottle) at 7am-9am, 1 protein bar (16gr Fit Crunch protein bar, buy at [employer]) at 10am-12pm, another premade PREMIER protein ([facility] shake (8oz of PREMIER shake, NOT the whole bottle) at 1pm-3pm, another Fit Crunch protein bar at 4pm-6pm, dinner at 7pm (10 forks of protein and 10 forks of salad/vegetables) AND one more protein bar after dinner at 9pm-11pm. So you do 2 protein shakes, 3 protein bars and one meal per day. Meal to include lean meat (beef, fish, pork, turkey, chicken), or samoan yogurt, or egg whites, or beans with a salad with olive oil and fruits (berries, pears, apples, kiwi). Avoid salt, breads, potatoes, rice, pasta, desserts. 2. Each shake would be drunk slowly, like coffee in a period of 2 hours. 3. Cut each bar in 4 pieces and eat each piece in 30min to make each bar last 2 hours. 4. I emphasized the importance of measuring accurately the food portion and measure it when serving the food in plate 5. The meal portions include 10 full-size forks of meat and 10 full-size forks of salad. You always eat the meat portion but you can replace up to 5 forks for salad/vegetables with rice, potatoes or pasta, or a fruit if you like. The less you do it the better weight loss will be. 6. One full-size fork is what it can be scooped on the fork without falling aside and not what can be bit with the fork. Use regular forks like those you find in a typical restaurant. 7. Please buy the body composition scale we discussed and send me weight measurements as soon as possible and then once a week. Always include your diet and exercise plan. Alternatively come weekly at the office for weight checks and send me the measurements. 9. Start treadmill with speed of 3.0. Increase the speed by 0.5 every 3 min to a max speed of 5.0, stay 3min at 5.0 and then return to 3.0 and repeat same steps until calorie goal is met. Goal is to burn 2000 calories per week on exercise, which means either 300 calories daily, or 400 calories 5 days per week; 10. Goal is to lose at least 1.5-2lbs per week 11. Goal to lose at least 10% of your weight, which is about 31lbs. Minimum weight goal: 280lbs 12. Please follow the diet plan exactly without any change. If you don't like something about the plan or you feel hungry you need to communicate with me so I can help you revise the plan. You should not change the plan yourself
[2025-05-10 12:54] VITALS: BMI 56.9
== END 2025-05-10 17:13 | disposition home or self-care (01) ==
LOC: HO.HBS 08:17
PROVIDERS: PCP Internal Medicine; Visit Provider Surgery
DX: E66.01 Morbid (severe) obesity due to excess calories (principal); Z68.43 Body mass index [BMI] 50.0-59.9, adult
CPT/HCPCS: 98011